=== PATIENT | male | born 1950 | race Caucasian/White ===

== ENCOUNTER 2021-10-19 14:11 | Outpatient (CLI) | payer MEDICARE, SELFPAY ==
--- NOTE | ~2021-10-19 | XR_ITS ---
XR lumbar spine 2-3V DATE: 10/19/2021 14:37 INDICATION: Chronic back pain TECHNIQUE: AP, lateral views COMPARISON: None FINDINGS: There is mild to moderate thoracolumbar levoscoliosis. Status post posterior and interbody spinal fusion at L3-L5. Moderately severe degenerative disc disease at T11-12, mild degenerative disc disease at T12-L1, mode rately severe degenerative disc disease at L1 to and severe degenerative disc disease at L2-3. L5-S1 interspace is relatively preserved. The sacroiliac joints are intact. Battery pack overlies left gluteal area with leads extending cephalad over the upper lumbar and thora cic spine. No abdominal aortic calcification. IMPRESSION: Status post posterior and interbody spinal fusion at L3-L5 Multilevel degenerative disc disease Reviewed, dictated and finalized at location A.
== END 2021-10-19 14:12 | disposition home or self-care (01) ==
PROVIDERS: PCP Internal Medicine Geriatric Medicine; Visit Provider Neurological Surgery
DX: M51.36 Other intervertebral disc degeneration, lumbar region (principal); Z98.1 Arthrodesis status
CPT/HCPCS: 72100

== ENCOUNTER 2021-12-09 10:37 | Outpatient (CLI) | payer MEDICARE, SELFPAY ==
--- NOTE | ~2021-12-09 | XR_ITS ---
XR lumbar spine 2-3V DATE: 12/09/2021 11:01 INDICATION: Low back pain TECHNIQUE: AP, lateral, coned lateral lumbosacral views COMPARISON: 10/19/2021 lumbar spine FINDINGS: Normal alignment of the lumbar spine. There is postoperative change including posterior and interbody spinal fusion at L3-L5. Moderately prominent degenerative disease at L1 to moderately severe degenerative disc disease at L2- 3. Mild degenerative disease at L5-S1. Normal alignment at the sacroiliac joints. There is osteopenia. Left sided generator device overlies the left iliac crest with leads extending over the lower thoraci c spinal canal. IMPRESSION: No significant change since 10/19/2021 Reviewed, dictated and finalized at location B.
--- NOTE | 2021-12-09 11:56 | ECG_ITS ---
Measurements Intervals [place] Rate: 55 P: 28 WI: 224 QRS: 6 QRSD: 95 T: 29 QT: 401 QTc: 386 Interpretive Statements SINUS BRADYCARDIA WITH FIRST DEGREE AV BLOCK NO PREVIOUS ECG AVAILABLE FOR COMPARISON Electronically Signed On 12-09-2021 19:59:55 CDT by Lily Figueroa M.D.
[2021-12-09 12:40] LABS: Basophils Absolute Auto 0.1 K/mm3 (0.0-0.1); Basophils Percent Auto 1.1 % (0.2-1.2); Eosinophils Absolute Auto 0.2 K/mm3 (0-0.3); Eosinophils Percent Auto 2.7 % (0-4.4); Hematocrit 47.6 % (42.0-52.0); Hemoglobin 15.6 g/dL (14.0-18.0); Immature Granulocyte Absolute 0.02 K/mm3 (0.00-0.031); Immature Granulocyte Percent A 0.3 % (0-0.5); Lymphocytes Percent Auto 19.3 % (18.3-44.2); Mean Corpuscular HGB Conc 32.8 g/dl (32-36); Mean Corpuscular Hemoglobin 30.1 pg (26-34); Mean Corpuscular Volume 91.9 fl (80-100); Mean Platelet Volume 8.9 fl (7.4-10.4); Monocytes Absolute Auto 0.6 K/mm3 (0.1-0.6); Monocytes Percent Auto 9.7 % (2.6-8.5); Neutrophils Absolute Auto 4.2 K/mm3 (1.3-6.7); Neutrophils Percent Auto 66.9 % (45.5-73.1); Platelet Count Result 323 k/mm3 (150-375); Red Blood Count 5.18 M/mm3 (4.6-6.20); Red Cell Distribution Width 13.2 % (11.5-14.5); White Blood Count 6.2 K/mm3 (4.5-10.0)
[2021-12-09 12:44] LABS: Prothrombin Time 13.1 Seconds (11.1-14.7)
[2021-12-09 12:45] LABS: Partial Thromboplastin Time 28.4 SECONDS (22.3-36.8)
== END 2021-12-09 10:38 | disposition home or self-care (01) ==
PROVIDERS: PCP Internal Medicine Geriatric Medicine; Visit Provider Neurological Surgery
DX: M54.50 Low back pain, unspecified (principal); Z01.818 Encounter for other preprocedural examination; I44.0 Atrioventricular block, first degree
CPT/HCPCS: 36415; 72100; 85025; 85610; 85730; 86850; 86900; 86901; 93005

== ENCOUNTER 2021-12-31 13:30 | Inpatient (IN) | payer MEDICARE, SELFPAY ==
--- NOTE | 2021-12-28 11:39 | PC.NURSE ---
Report to the Outpatient Waiting Room, entrance under the green pavilion located off [facility], at [address] 0730 on date _12/31/21 . OR Time: . Time changes happen often and if your time is changed the preop area will call you the afternoon before. - You and your visitor will be asked to self-screen and do not enter if you have any COVID symptoms. - Only one visitor and NO children visitors are allowed at this time. - The patient visitor is requested to leave or wait in car when not with patient due to restrictions. - A mask is required within the hospital. Patients may have clear liquids (water, carbonated beverages, clear teas, apple juice) until 3 hours prior to surgery with a maximum of 20 ounces. - No food from midnight until time of surgery - Infants may have breast milk until 4 hours before surgery, formula 6 hours prior to surgery. - Children will be allowed to drink immediately following surgery. If applicable, please bring a bottle or sippy cup to assist with drinking. Juice, water, soda, and popsicles are readily available. For infants on formula, please bring formula the day of surgery. Pacifiers are allowed. Take the following medications with a SIP of water the morning of surgery: __AMLODIPINE,GABAPENTIN,MEMANTINE Medications to discontinue per physician ____PT'S STATES HOLD CELEBREX 2 WKS PRE OP PER DR DUMONT Date to take last dose___12/16/21 Please no make-up, nail azeri, hairspray, perfume, deodorant, or body powder the day of surgery. No jewelry (including any body piercings) or valuables the day of surgery, leave them at home. Please take a shower or bath the night before, or the morning of, surgery with an antibacterial soap. Wear comfortable, loose fitting clothing. Children are encouraged to wear pajamas. - Jewelry must be removed prior to entering the operating room. Rings and piercings that are not removed may be cut off. - The hospital will not accept responsibility for valuables. - Please leave all valuables, including medications, at home the day of surgery. If you are going home after surgery, a licensed emt driver must drive you home. - NO public transportation without another adult. - We recommend that an adult stay with you for 24 hours following discharge. - We also recommend that you do not drive, make important decision, drink alcoholic beverages, or take any drugs that were not prescribed by your health care provider for at least 24 hours after your discharge time. For Pediatric surgeries, we recommend two adults accompany the child home (only one inside the building at this time). Follow any additional instructions given to you from your surgeon. If you or anyone in your household have experienced Covid symptoms in the past week, please notify your surgeon or the nurse liaison at the phone number below for possible testing. Telephone instructions given to PT'S KRISTEN and asked if any additional questions and then verbalized understanding. Patient advised to call surgeon office or pre surgery nurse liaison [phone] if any additional questions.
[2021-12-28 11:46] VITALS: BMI 22.8
--- NOTE | 2021-12-30 15:05 | WPDANESEPPF ---
Anes - Initial Pre Proc Eval Procedure: Operation Date: 12/31/21 09:30 Proposed Procedures p L 2-3 Posterior Lateral Interbody Fusion, Revision of Posterior Instrumentation - Konrad Khanna MD Date/Time: 12/30/21 15:05 Surgeon: Konrad Khanna MD Pre Op Diagnosis: Spondylosis Patient Data Age: 71 Gender: M Height: 1.85 m Weight: 78.5 kg Allergies Allergy/AdvReac Type Severity Reaction Status Date / Time No Known Allergies Allergy Unverified 12/31/21 07:59 Home Medications Medication Instructions Recorded Confirmed Type amlodipine 5 mg tablet 5 mg PO DAILY 10/19/21 12/28/21 History celecoxib 200 mg capsule (Celebrex) 200 mg PO DAILY 10/19/21 12/28/21 History donepezil 10 mg tablet 10 mg PO QHS 10/19/21 12/28/21 History gabapentin 600 mg tablet 600 mg PO TID 10/19/21 12/28/21 History lisinopril 40 mg tablet 40 mg PO DAILY 10/19/21 12/28/21 History memantine 28 mg capsule 28 mg PO DAILY 10/19/21 12/28/21 History sprinkle,extended release 24hr omeprazole 20 mg capsule,delayed 20 mg PO DAILY 10/19/21 12/28/21 History release triamcinolone acetonide 0.025 % 1 applic topical PRN PRN Rash 10/19/21 12/28/21 History topical cream Patient hx anesthesia problems: none Family hx anesthesia problems: none Results Review: All pre-operative results and documents have been reviewed as part of the pre-operative evaluation. [facility] Past Medical History Medical History (Updated 12/30/21 @ 15:06 by Cory Rahman MD) Arthritis Back pain Basal cell carcinoma Ganglion cyst HTN (hypertension) Spinal cord stimulator status Surgical History Surgical History H/O hand surgery H/O knee surgery H/O neck surgery History of appendectomy History of lumbar surgery Family History Family History Other Hypertension Social History Social History Smoking status: Never smoker Alcohol intake: current Drinks per week: 7 Substance use: never Substance use type: does not use Living arrangements: with family Spiritual care concerns: No Anes - Eval Final PreProcedure Day of Procedure 12/30/21 15:05 Patient weight: normal Heart: regular rate and rhythm Lungs: clear to auscultation and normal air movement Airway: Mallampati scale class II Neurological: alert and oriented Last oral intake: >/= 8 hours ASA classification: III Emergent: no Anesthetic plan: proceed Anesthesia type and monitoring: general ETT Results Review: All pre-operative results and documents have been reviewed as part of the pre-operative evaluation. Informed Consent: The patient's anesthetic plan and its attendant risks and benefits were discussed with the patient/family/POA. Questions were solicited and answers provided to the satisfaction of the patient/family/POA.
[2021-12-31] VITALS (14 sets, daily range): BP systolic 94–129; BP diastolic 53–87; PULSE 75–104; RESP 10–18; TEMP 35.6–37.2; O2SAT 91–99
--- NOTE | ~2021-12-31 | XR_ITS ---
XR fluoroscopy no charge 12/31/2021 12:14 Indication: Spinal fusion procedure TECHNIQUE: Fluoroscopy used during spinal fusion procedure performed by [Konrad Khanna MD] on 12/31/2021. Fluoroscopy time is 9 seconds with 5 images captured. ] FINDINGS: Correlate with procedure note. IMPRESSION: Fluoroscopy used during spinal fusion procedure. Please refer to procedural report for de tails. Reviewed, dictated and finalized at location A. IMPRESSION: Fluoroscopy used during spinal fusion procedure. Please refer to pr ocedural report for details.
[2021-12-31] MEDS: LACTATED RINGERS 1,000 ML 30 ML IV CONT ×2 (08:25→12:41)
--- NOTE | 2021-12-31 09:36 | PM.IMHP ---
H&P: HPI History of Present Illness Date/Time: 12/31/21 09:36 Chief Complaint: Back and leg pain Narrative: Mr. Silvestre is a 71-year-old gentleman with junctional stenosis above a lumbar fusion who presents for posterior lumbar interbody fusion after laminectomy at L2-3. He has not changed appreciably since we saw him last. He does not have specific muscle group weakness or dermatomal numbness. He is not having bowel or bladder incontinence. Review of Systems Review of Systems: No numbness or weakness PMFSH Past Medical History Medical History Arthritis Back pain Basal cell carcinoma Ganglion cyst HTN (hypertension) Spinal cord stimulator status Surgical History Surgical History H/O hand surgery H/O knee surgery H/O neck surgery History of appendectomy History of lumbar surgery Family History Family History Other Hypertension Social History Social History Smoking status: Never smoker Alcohol intake: current Drinks per week: 7 Substance use: never Substance use type: does not use Living arrangements: with family Spiritual care concerns: No Meds Home Medications and Allergies Home Medications Medication Instructions Recorded Confirmed Type amlodipine 5 mg tablet 5 mg PO DAILY 10/19/21 12/31/21 History celecoxib 200 mg capsule (Celebrex) 200 mg PO DAILY 10/19/21 12/31/21 History donepezil 10 mg tablet 10 mg PO QHS 10/19/21 12/31/21 History gabapentin 600 mg tablet 600 mg PO TID 10/19/21 12/31/21 History lisinopril 40 mg tablet 40 mg PO DAILY 10/19/21 12/31/21 History memantine 28 mg capsule 28 mg PO DAILY 10/19/21 12/31/21 History sprinkle,extended release 24hr omeprazole 20 mg capsule,delayed 20 mg PO DAILY 10/19/21 12/31/21 History release triamcinolone acetonide 0.025 % 1 applic topical PRN PRN Rash 10/19/21 12/31/21 History topical cream Allergies Allergy/AdvReac Type Severity Reaction Status Date / Time No Known Allergies Allergy Unverified 12/31/21 08:12 Vital Signs Vital Signs - 24 hr 12/31/21 08:28 Temperature 97.8 F Pulse Rate 75 Respiratory Rate 16 Blood Pressure 129/80 Pulse Oximetry 99 Oxygen Delivery Room Air Exam Neuro: Other: The patient is a normally developed, normal appearing male supine in hospital bed in no acute distress. He is awake, alert, oriented x3, with good fund of knowledge, recall events and fluent speech. Strength is 5/5 in all muscle groups of the bilateral lower extremities. Sensation is intact to light touch throughout the lower extremities. Clear to auscultation Regular rate and rhythm Assessment and Plan Assessment and plan (1) Lumbar stenosis with neurogenic claudication: Code(s): M48.062 - Spinal stenosis, lumbar region with neurogenic claudication Status: Acute (2) Lumbar disc herniation: Code(s): M51.26 - Other intervertebral disc displacement, lumbar region Status: Acute Plan Mr. Silvestre is a 71-year-old gentleman with junctional stenosis and disc herniation at L2-3 who presents for posterior lumbar interbody fusion extending his fusion to L2. I described to him again that operation, its risks, potential benefits, the operative and postoperative course in detail answered all his questions personally. He indicates understanding and elects to proceed with that operation.
--- NOTE | 2021-12-31 10:05 | WPDHPUPDATE1 ---
History and Physical Update Update Date/Time: 12/31/21 10:05 History and Physical has been reviewed, including an updated exam of the patient. There are NO changes in the patient's condition. Risks, benefits, and alternatives have been discussed and questions answered. Patient agrees to proceed with procedure.
[2021-12-31] MEDS: ceFAZolin 2 GM/D5W 50 ML 2 GM/50 ML BAG IVPB (10:12)
[2021-12-31] MEDS: LIDO 1%/EPINEPHRINE 1:100,000 50 ML VIAL INFILTRATE (10:49)
--- NOTE | 2021-12-31 12:27 | W.PM.PROC2 ---
Procedure Note - Detailed Date of Procedure 12/31/21 Pre-op Diagnosis Lumbar spondylosis, disc herniation and stenosis, L2-3 Post-op Diagnosis Same Procedure Performed L2-3 laminectomy, bilateral facetectomy, complete diskectomy, interbody arthrodesis utilizing titanium CoreLink interbody devices and L2-3 pedicle screw instrumentation with Sterling with connection to inferior instrumentation with lateral offsets Surgeon Konrad Khanna MD [facility] Anesthesia General Indications Mr. Silvestre is a 71-year-old gentleman with back and leg pain related to the above pathology who presents for decompression and fusion L2-3. Description of Procedure Mr. Silvestre was brought to the operating room in the supine position, was sedated, intubated placed under general anesthesia in routine fashion. He was then turned into the prone position on an open Mahad table. The area of operation on his back was examined, marked for incision, prepped and draped in routine sterile fashion. Incision was marked over the L2-3 for spinous processes in the midline. This area was injected with 0.5% lidocaine with [id number] epinephrine. Intravenous antibiotics given prior to incision. Incision was made with a 10 blade scalpel down to the lumbodorsal fascia. A subperiosteal dissection of the muscle soft tissue away from spinous process and lamina at L2-3 was performed with a subperiosteal elevator and Bovie cautery. The instrumentation at L3-4 was uncovered using Bovie cautery. A verifying x-rays obtained to verify the level of operation. The L2 spinous process was removed with a Jd rongeur. Kerrison punches, curved curette and a Magueksell rongeur were used to remove lamina in the midline until a soft contents of the canal were encountered. Midas-Yimi drill was used to resect the pars bilaterally. The inferior articular process and facet of L2 could then be removed bilaterally. These +spinous process were stripped free of soft tissue and morselized for later use is interbody autograft. Kerrison punches and curved curettes were used to define a plane with the dura and removed bone and ligament flush with the pedicle and through the foramen widely decompressing the exiting nerve roots. With the thecal sac retracted and protected the disc space was entered bilaterally using an 11 blade scalpel. Scrapers of various sizes, curettes of various configurations, a pituitary rongeur and a rasp were used to remove as much cartilaginous endplate and disc material as possible down to bleeding cortical flat surfaces on the opposing bones. The disc space was incised and 10 mm titanium CoreLink interbody devices were chosen filled with local autograft bone. The disc space was likewise filled with local autograft bone medially and anteriorly. The interbody devices were then placed with 2-3 mm countersink within the disc space bilaterally. Pedicle screw instrumentation was performed at L2 by observing and palpating the pedicle while a hole was made in superior to could process above the pedicle using a Midas Yimi drill. The pedicle was then cannulated with a pedicle probe, checked for continuity with the ball probe, tapped with a 5.5 mm tap and a 6.5 x 50 mm screw was placed into each pedicle. Lateral offsets were placed on the rods between L3 and L4. A 7 mm deidre was then placed from the screw head at L2 to the lateral offsets between L3 and L4 and secured in position using the appropriate caps. These were definitively tightened with a torque and anti torque device. A verifying x-rays obtained to verify good position of the instrumentation and interbody devices which was confirmed. The wound was then copiously irrigated with bacitracin irrigation all bleeding was stopped with bipolar and Bovie cautery and Gelfoam thrombin powder. The wound was then closed in layered fashion with 0 Vicryl interrupted sutures in the lumbodorsal fascia and 2-0 Vicryl interrupted sutures in Vanesa's layer. 3-
[2021-12-31] MEDS: fentaNYL CITRATE INJ (*CRX) 100 MCG/2 ML VIAL 25 MCG IV PUSH (14:00)
--- NOTE | 2021-12-31 14:23 | SUR.PHASEI ---
delay pt going to his room due to waiting on an admission and transfer order.
[2021-12-31] MEDS: KCL 20 MEQ/D5/0.45% SOD CHL 1,000 ML 100 ML IV CONT (16:35)
[2021-12-31] MEDS: HYDROcodone/acetaminophen (*CRX) 10-325 MG TABLET 1 TAB PO ×2 (17:45→21:30)
[2021-12-31] MEDS: GABAPENTIN 300 MG CAPSULE 600 MG PO (17:45)
[2021-12-31] MEDS: DONEPEZIL HCL 10 MG TABLET PO (21:30)
[2021-12-31] MEDS: DOCUSATE SODIUM 100 MG CAPSULE PO (21:30)
[2022-01-01 01:32] VITALS: BP 145/89; PULSE 74; RESP 18; TEMP 35.9; O2SAT 99
[2022-01-01] MEDS: HYDROcodone/acetaminophen (*CRX) 10-325 MG TABLET 1 TAB PO ×3 (05:34→18:29)
[2022-01-01 05:39] VITALS: BP 121/84; PULSE 87; RESP 18; TEMP 36; O2SAT 95
[2022-01-01] MEDS: DOCUSATE SODIUM 100 MG CAPSULE PO ×2 (08:42→20:19)
[2022-01-01] MEDS: GABAPENTIN 300 MG CAPSULE 600 MG PO ×3 (08:42→16:57)
[2022-01-01] MEDS: CYCLOBENZAPRINE HCL 10 MG TABLET PO (08:42)
[2022-01-01] MEDS: amLODIPine BESYLATE 5 MG TABLET PO (08:42)
[2022-01-01] MEDS: SENNA/DOCUSATE SODIUM TABLET 1 TAB PO (08:43)
[2022-01-01] MEDS: PANTOPRAZOLE 40 MG TABLET PO (08:43)
[2022-01-01] MEDS: MEMANTINE HCL XR 28 MG CAP PO (08:43)
[2022-01-01] MEDS: lisinopriL 20 MG TABLET 40 MG PO ×2 (10:34→20:20)
[2022-01-01] MEDS: HYDROmorphone HCL INJ (*CRX) 1 MG/ML SYR 0.5 MG IV PUSH (10:37)
--- NOTE | 2022-01-01 11:35 | WPDANESPN ---
Anes - Prog Note Post-Op Date/Time: 01/01/22 11:35 Cardiovascular status: normal Respiratory status: normal Airway patency: baseline Mental status: baseline Post-Op hydration status: normal Vital Signs: Last Vital Signs Temp 36.0 C L 01/01/22 05:39 Pulse 87 01/01/22 05:39 Resp 18 01/01/22 05:39 BP 121/84 01/01/22 05:39 Pulse Ox 95 01/01/22 05:39 O2 Del Method Room Air 01/01/22 08:00 O2 Flow Rate 6 12/31/21 12:55 Pain Score (VAS): 10 I/O: Intake & Output 12/31/21 01/01/22 01/01/22 23:59 07:59 15:59 Intake Total 690 2050 170 Output Total 140 1790 Balance 550 260 170 Post-procedural complaints: none Patient Feedback: Patient satisfied with anesthetic care.
--- NOTE | 2022-01-01 12:22 | WPDNEUROSGPN ---
Progress Note: A&P Assessment and Plan (1) Lumbar stenosis with neurogenic claudication: Code(s): M48.062 - Spinal stenosis, lumbar region with neurogenic claudication Status: Acute Assessment and Plan: Mr. iSlvestre is doing well overall after lumbar decompression and fusion at L2-3. His therapist feel that he would benefit from 1 additional day in the hospital prior to consideration of discharge to home. Particularly as his Hemovac drain output with high overnight I think this is reasonable. We will leave the drain in place expecting it to be able to be removed tomorrow. He will continue to mobilize with therapy in anticipation of hopeful discharge on postoperative day 2 Subjective Date/time seen: 01/01/22 12:22 Patient notes improvement in lower extremity symptoms Still needing some cues from PT for safety Drain output high overnight Exam Narrative: Awake, alert, oriented x3 Speech CF GARO EOMI Face= TML MAEW with good strength Dressing CDI Objective Data Vital Signs Vital Signs: Vital Signs - 24 hr 12/31/21 12:40 12/31/21 12:55 12/31/21 13:10 Temperature 99 F Pulse Rate 104 H 101 H 95 Respiratory Rate 10 L 13 11 L Blood Pressure 109/80 108/72 99/65 L Pulse Oximetry 99 99 94 Oxygen Delivery Simple Face Mask Simple Face Mask Room Air Oxygen Flow Rate 6 6 12/31/21 13:25 12/31/21 13:40 12/31/21 13:55 Temperature Pulse Rate 89 87 79 Respiratory Rate 13 13 14 Blood Pressure 95/72 L 94/74 L 97/70 L Pulse Oximetry 93 97 96 Oxygen Delivery Room Air Room Air Room Air Oxygen Flow Rate 12/31/21 14:10 12/31/21 14:26 12/31/21 16:02 Temperature Pulse Rate 79 91 Respiratory Rate 14 18 Blood Pressure 97/77 L 99/79 L Pulse Oximetry 96 95 Oxygen Delivery Room Air Room Air Room Air Oxygen Flow Rate 12/31/21 14:54 12/31/21 15:09 12/31/21 15:39 Temperature 97.5 F L 96.2 F L 96.4 F L Pulse Rate 86 86 83 Respiratory Rate 16 16 18 Blood Pressure 108/69 102/73 107/75 Pulse Oximetry 91 94 93 Oxygen Delivery Oxygen Flow Rate 12/31/21 16:39 12/31/21 21:08 12/31/21 22:55 Temperature 96.0 F L 97.3 F L Pulse Rate 86 83 Respiratory Rate 16 18 Blood Pressure 104/53 L 119/87 Pulse Oximetry 91 93 Oxygen Delivery Room Air Oxygen Flow Rate 01/01/22 01:32 01/01/22 05:39 01/01/22 08:00 Temperature 96.7 F L 96.8 F L Pulse Rate 74 87 Respiratory Rate 18 18 Blood Pressure 145/89 H 121/84 Pulse Oximetry 99 95 Oxygen Delivery Room Air Oxygen Flow Rate Intake/Output Intake/Output: Intake & Output 12/29/21 12/30/21 12/31/21 01/01/22 23:59 23:59 23:59 23:59 Intake Total 2740 2220 Output Total 225 1790 Balance 2515 430 Meds/Results Medications: Active Medications Generic Name Dose Route Start Last Admin Trade Name Freq PRN Reason Stop Dose Admin Hydrocodone Bitart/Acetaminophen 1 tab 12/31/21 14:39 Hydrocodone/Acetaminophen (*Crx) 5-325 Mg Tablet PO Q4H PRN Mild Pain (1-3) Hydrocodone Bitart/Acetaminophen 1 tab 12/31/21 14:39 01/01/22 08:42 Hydrocodone/Acetaminophen (*Crx) 10-325 Mg Tablet PO 1 tab Q4H PRN Administration Moderate Pain (4-6) Al Hydrox/Mg Hydrox/Simethicone 20 ml 12/31/21 14:39 Mag Hydrox/Al Hydrox/Simeth 30 Ml Udc PO Q4H PRN Indigestion/Heartburn Amlodipine Besylate 5 mg 01/01/22 09:00 01/01/22 08:42 Amlodipine Besylate 5 Mg Tablet PO 5 mg DAILY ALICIA Administration Bisacodyl 10 mg 12/31/21 14:39 Bisacodyl 10 Mg Suppository RECTAL DAILY PRN Constipation Cyclobenzaprine HCl 10 mg 12/31/21 14:39 01/01/22 08:42 Cyclobenzaprine Hcl 10 Mg Tablet PO 10 mg TID PRN Administration Muscle Spasms Docusate Sodium 100 mg 12/31/21 21:00 01/01/22 08:42 Docusate Sodium 100 Mg Capsule PO 100 mg Q12HR ALICIA Administration Donepezil HCl 10 mg 12/31/21 21:00 12/31/21 21:30 Donepezil Hcl 10 Mg Tablet PO 10 mg QHS
[2022-01-01 13:16] VITALS: BP 117/73; PULSE 81; RESP 18; TEMP 36.9; O2SAT 100
--- NOTE | 2022-01-01 17:42 | PC.NURSE ---
Pt was bladder scanned and found to be retaining approximately 750mL. I attempted to straight cath pt with a 14 catheter but it coiled due to pt's prostate. Various attempts were made using different positions but to no avail. A 16 coude catheter was obtained and another attempt to straight cath pt was performed but again to no avail. Pt was placed in different positions and multiple attempts were made with each position including rotating the coude but again it would not go around the prostate and coiled. This is the third time pt is needed to be straight cathed. A 14 coude catheter was obtained and another attempt to straight cath pt was made; this time the coude tip was inserted group tester and turned to the right (pt's left side) and was able to hook around the prostate. The entire length of the catheter had to be inserted up to the point of the pigtail in order for the bladder to be drained. Approximately 850mL were drained from pt's bladder. Pt was bladder scanned after being cathed with a residual of approximately 14mL.
[2022-01-01 20:10] VITALS: PULSE 81; RESP 18; O2SAT 100
[2022-01-01] MEDS: DONEPEZIL HCL 10 MG TABLET PO (20:21)
[2022-01-01 22:45] VITALS: BP 114/96; PULSE 86; RESP 18; TEMP 36.8; O2SAT 97
[2022-01-02 00:30] VITALS: BP 106/74; PULSE 82; RESP 18; TEMP 36.5; O2SAT 94
[2022-01-02 04:51] VITALS: BP 113/65; PULSE 83; RESP 18; TEMP 36.9; O2SAT 93
[2022-01-02] MEDS: GABAPENTIN 300 MG CAPSULE 600 MG PO (08:45)
[2022-01-02] MEDS: MEMANTINE HCL XR 28 MG CAP PO (08:45)
[2022-01-02] MEDS: amLODIPine BESYLATE 5 MG TABLET PO (08:45)
[2022-01-02] MEDS: DOCUSATE SODIUM 100 MG CAPSULE PO (08:45)
[2022-01-02] MEDS: lisinopriL 20 MG TABLET 40 MG PO (08:45)
[2022-01-02] MEDS: HYDROcodone/acetaminophen (*CRX) 10-325 MG TABLET 1 TAB PO (08:45)
[2022-01-02] MEDS: CYCLOBENZAPRINE HCL 10 MG TABLET PO (08:46)
[2022-01-02] MEDS: PANTOPRAZOLE 40 MG TABLET PO (08:46)
[2022-01-02 14:00] VITALS: BP 104/69; PULSE 67; RESP 20; TEMP 36.6; O2SAT 97
--- NOTE | 2022-01-02 15:26 | WPDURCON ---
Assessment and Plan Assessment and plan (1) Urinary retention with incomplete bladder emptying: Code(s): R33.9 - Retention of urine, unspecified Status: Acute Assessment and Plan: I place 18 gambian coude at bedside---resistance at prostate DC home with ayers' Trial of voiding 3-4 days started and gave script for tamsulosin Urology Consult Note HPI Date Seen: 01/02/22 Requesting Physician: Konrad Khanna MD Primary Care Provider: Antony Singh, Consult Narrative Narrative: De Silvestre is a 71 year old male wiht retention following Lumbar spine operations. Straight cath yesterday and unable to place ayers or straight cath today. Asked to place. No past history of prostate issues. Voiding symptoms mild preop--nocturia 2-3 and stream reasonable. [facility] Past Medical History Medical History Arthritis Back pain Basal cell carcinoma Ganglion cyst HTN (hypertension) Spinal cord stimulator status Surgical History Surgical History H/O hand surgery H/O knee surgery H/O neck surgery History of appendectomy History of lumbar surgery Family History Family History Other Hypertension Social History Social History Smoking status: Never smoker Alcohol intake: current Drinks per week: 7 Substance use: never Substance use type: does not use Living arrangements: with family Spiritual care concerns: No Meds Home Medications and Allergies Home Medications Medication Instructions Recorded Confirmed Type amlodipine 5 mg tablet 5 mg PO DAILY 10/19/21 12/31/21 History donepezil 10 mg tablet 10 mg PO QHS 10/19/21 12/31/21 History gabapentin 600 mg tablet 600 mg PO TID 10/19/21 12/31/21 History lisinopril 40 mg tablet 40 mg PO BID 10/19/21 12/31/21 History memantine 28 mg capsule 28 mg PO DAILY 10/19/21 12/31/21 History sprinkle,extended release 24hr omeprazole 20 mg capsule,delayed 20 mg PO DAILY 10/19/21 12/31/21 History release triamcinolone acetonide 0.025 % 1 applic topical PRN PRN Rash 10/19/21 12/31/21 History topical cream cyclobenzaprine 10 mg tablet 10 mg PO TID PRN Muscle Spasms #63 01/02/22 Rx tabs hydrocodone 5 mg-acetaminophen 325 1 - 2 tablet PO Q6H PRN pain #50 01/02/22 Rx mg tablet tabs sennosides 8.6 mg-docusate sodium 1 tab PO HS PRN Constipation #45 01/02/22 Rx 50 mg tablet (Senokot-S) tabs tamsulosin 0.4 mg capsule 0.4 mg PO QAM #1 cap 01/02/22 Rx Allergies Allergy/AdvReac Type Severity Reaction Status Date / Time No Known Allergies Allergy Unverified 12/31/21 08:12 Vital Signs Vital Signs - 24 hr 01/01/22 20:10 01/01/22 22:45 01/02/22 00:30 Temperature 36.8 C 36.5 C Pulse Rate 81 86 82 Respiratory Rate 18 18 18 Blood Pressure 114/96 H 106/74 Pulse Oximetry 100 97 94 Oxygen Delivery Room Air 01/02/22 04:51 01/02/22 08:00 01/02/22 14:00 Temperature 36.9 C 36.6 C Pulse Rate 83 67 Respiratory Rate 18 20 Blood Pressure 113/65 104/69 Pulse Oximetry 93 97 Oxygen Delivery Room Air Exam GI: GI Palp: No abdominal tenderness and No Guarding due to palpation present (GI) : General: Yes bladder normal to palpation Penis: Yes normal penis and Yes circumcised
--- NOTE | 2022-01-23 08:51 | P.DS_ITS ---
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 Silvestre presented for advancement of his fusion at L2 for junctional stenosis. This is a L2-3 posterior lumbar interbody fusion. Hospital Course: Mr. Silvestre was brought to the operating room on 12/31/2021 with the aforementioned operation was performed without complication. He would to the floor postoperatively. On postoperative day 1 his drain was removed. He had trouble with urination and Neurology was consulted. Ayers catheter was placed. At the time of his discharge he was eating, ambulating in his pain was under control with by mouth pain medicine. His wound remained clean, dry and intact. He was afebrile stable vital signs. He was therefore allowed to be discharged home. Time Spent with Patient Time attestation: Total time spent providing and/or coordinating discharge services: Discharge Plan Discharge Attending physician on discharge: Konrad Khanna Consulting providers: Abner Hinojosa ; Yamilka King ; Zoran Mcmillan ; Rashad Pulido Discharging Clinician: Rashad Pulido Patient Disposition: Home Health Service Activity: august shower Diet: regular Discharge Instructions: A Ayers catheter has been placed due to urinary retention. Leave the catheter in place until after your appointment with the urologist. Please call and schedule an appointment with the urologist Tuesday, January 04, 2002. Per Care Coordination. Patient to have [facility] [phone] for RN/PT/OT eval and treat. RN please fax discharge to [phone]. They will contact patient to schedule first visit. Patient Instructions: Antibiotic Form Stand Alone Forms: General Discharge Information Follow-up/Referrals: Konrad Khanna MD [Physician] - (F/u in clinic with Dr. Khanna We will contact Urology for f/u for ayers catheter. Patient not able to void on his own, so will be discharged with ayers ) Zoran Mcmillan MD [Physician] - Discharge Medications: New cyclobenzaprine 10 mg Tablet 10 mg PO TID PRN (Reason: Muscle Spasms) Qty: 63 0RF sennosides-docusate sodium [Senokot-S] 8.6-50 mg Tablet 1 tab PO HS PRN (Reason: Constipation) Qty: 45 1RF hydrocodone-acetaminophen 5-325 mg tablet 1 - 2 tablet PO Q6H PRN (Reason: pain) Qty: 50 0RF tamsulosin 0.4 mg Capsule 0.4 mg PO QAM Qty: 1 0RF Continued lisinopril 40 mg tablet 40 mg PO BID Label Comments: BID omeprazole 20 mg capsule,delayed release(DR/EC) 20 mg PO DAILY amlodipine 5 mg tablet 5 mg PO DAILY gabapentin 600 mg tablet 600 mg PO TID donepezil 10 mg tablet 10 mg PO QHS memantine 28 mg capsule,sprinkle,ER 24hr 28 mg PO DAILY triamcinolone acetonide 0.025 % cream 1 applic topical PRN PRN (Reason: Rash) Label Comments: said few weeks Rx Instructions: generalized rash after yard work or mowing grass. Discontinued celecoxib [Celebrex] 200 mg capsule 200 mg PO DAILY Label Comments: BID No Action oxycodone-acetaminophen [Percocet] 5-325 mg tablet 1 tablet PO Q4H PRN (Reason: pain) Qty: 30 0RF Date of admission: 12/31/21 13:30 Primary Care Provider: Francisco,Antony Bradley Admitting Provider: Konrad Khanna Attending physician on admission: Konrad Khanna Condition: Improved
== END 2022-01-02 15:50 | disposition home health service (06) | DRG 460 ==
LOC: ANH3MEDSUR 13:48
PROVIDERS: Admitting Provider Neurological Surgery; PCP Internal Medicine Geriatric Medicine; Visit Provider Neurological Surgery
PROC: 0SG00AJ Fusion of Lumbar Vertebral Joint with Interbody Fusion Device, Posterior Approach, Anterior Column, Open Approach (ICD-10-PCS; CPT 22612; principal; 2021-12-31 09:30)
DX: M48.062 Spinal stenosis, lumbar region with neurogenic claudication (principal); M47.896 Other spondylosis, lumbar region; M51.26 Other intervertebral disc displacement, lumbar region; I10 Essential (primary) hypertension; R33.9 Retention of urine, unspecified; Z79.899 Other long term (current) drug therapy
CPT/HCPCS: 36415; 86850; 86900; 86901; 97116; 97161; 97165; 97530; 97535; 99199; A9270; J0690; J1100; J1170; J2370; J2405; J2704; J2710; J3010; J3370; J3480; J7120

== ENCOUNTER 2022-02-15 08:07 | Outpatient (CLI) | payer MEDICARE, SELFPAY ==
--- NOTE | ~2022-02-15 | XR_ITS ---
EXAMINATION: XR lumbar spine 2-3V DATE: 02/15/2022 08:30 INDICATION: Low back pain TECHNIQUE: Anteroposterior and lateral views of the lumbar spine, and cone-down lateral view of the l umbosacral junction were obtained. COMPARISON: 12/09/2021 FINDINGS: There are changes of interval posterior fusion, interbody device placement, and laminectomy at L2-3. Changes of posterior fusion, laminectomy, and interbody device placement are again seen fro m L3 through L5. The vertebral body heights are maintained. There are 2 mm of retrolisthesis of L5 on S1. There is no fracture. Small degenerative osteophytes project from the anterior endplates of mult iple vertebral bodies. A neurostimulator device is implanted in the posterior subcutaneous tissues in the left pelvis. Its leads enter the central spinal canal and courses beyond the superior margin of the radiograph. IMPRESSION: 1. Interval surgical change at L2-3 without acute findings. Reviewed, dictated and finalized at location B. [employer]INATE MEASURING MACHINE OPERATOR
== END 2022-02-15 08:08 | disposition home or self-care (01) ==
PROVIDERS: PCP Internal Medicine Geriatric Medicine; Visit Provider Neurological Surgery
DX: M48.062 Spinal stenosis, lumbar region with neurogenic claudication (principal); M51.26 Other intervertebral disc displacement, lumbar region; Z98.1 Arthrodesis status
CPT/HCPCS: 72100

== ENCOUNTER 2022-07-19 10:11 | Outpatient (CLI) | payer MEDICARE, SELFPAY ==
--- NOTE | ~2022-07-19 | XR_ITS ---
Lumbosacral Spine: AP and lateral views Clinical History: Pain COMPARISON: 02/15/2022 Findings: Osseous alignment is unchanged from prior exam. Posterior fixation hardware from L2 through L5, as well as interbody fusion devices are unchanged. Stable neurostimulator device. The sacroiliac joints are normally outlined. Impression: Stable postoperative change from prior exam. Osseous alignment is unchanged. Reviewed, dictated and finalized at [facility]. Impression: Stable postoperative change from prior exam. Osseous alignment is unchanged.
== END 2022-07-19 10:12 | disposition home or self-care (01) ==
PROVIDERS: PCP Internal Medicine Geriatric Medicine; Visit Provider Neurological Surgery
DX: M54.9 Dorsalgia, unspecified (principal)
CPT/HCPCS: 72100

== ENCOUNTER 2022-07-29 10:07 | Outpatient (CLI) | payer MEDICARE, SELFPAY ==
--- NOTE | ~2022-07-29 | CT_ITS ---
Noncontrast CT scan of the lumbar spine CLINICAL HISTORY: Back pain TECHNIQUE: Axial noncontrast imaging of the lumbar spine was performed. Sagittal and coronal reformat juvenal images were constructed. Dose reduction technique was used on this scan by utilizing automated ex posure control and iterative reconstruction technique. The dose-length product (DLP) was 996.24 mGy-c m. Findings: No acute fracture or subluxations identified. There is posterior fusion hardware extending from L2 through L5, with bilateral rods and transpedicular screws in place. Interbody disc fusion dev ices are present at the L2-L3, L3-L4, and L4-L5 disc spaces. There are laminectomy defects at L2, L3, and L4. There is mild degenerative disc narrowing at L1-L2. At L1-L2, there is minimal disc bulge and mild facet arthropathy. No spinal canal stenosis. Probable mild to moderate bilateral neural foraminal narrowing. At L2-L3, there is streak artifact from orthopedic hardware. No definite canal stenosis or neural for aminal narrowing. At L3-L4, there is streak artifact from orthopedic hardware. No definite canal stenosis. Probable mil d bilateral neural foraminal narrowing. At L4-L5, there is streak artifact from orthopedic hardware. No definite canal stenosis. Probable mod erate bilateral neural foraminal narrowing. At L5-S1, there is no definite disc bulge or herniation. No definite spinal canal stenosis. There is moderate left neural foraminal narrowing and mild right neural foraminal narrowing. Paravertebral soft tissues are unremarkable, aside from expected postoperative change. IMPRESSION: Postoperative fusion changes from L2 through L5, as detailed above. Mild degenerative spondylosis, as above. Reviewed, dictated and finalized at location M.
== END 2022-07-29 10:08 | disposition home or self-care (01) ==
PROVIDERS: PCP Internal Medicine Geriatric Medicine; Visit Provider Neurological Surgery
DX: M51.26 Other intervertebral disc displacement, lumbar region (principal); Z98.1 Arthrodesis status; M47.896 Other spondylosis, lumbar region
CPT/HCPCS: 72131

== ENCOUNTER 2022-12-29 10:29 | Outpatient (CLI) | payer MEDICARE, SELFPAY ==
--- NOTE | ~2022-12-29 | XR_ITS ---
Lumbosacral Spine: AP and lateral views Clinical History: Arthrodesis COMPARISON: 07/19/2022 Findings: Posterior lumbosacral spinal fixation hardware is present, extending from L2 through S2. Th ere are interbody fusion devices at the L2-L3, L3-L4, L4-L5, and L5-S1 disc spaces. There is underlyi ng anterolisthesis of L4 over L5 measuring approximately 6 mm. Minimal anterior wedging deformity of L1 is unchanged. The sacroiliac joints are normally outlined. Impression: Posterior and interbody fusion hardware extending from L2 through S2, as detailed above. Chronic mild anterior wedge deformity of L1. 6 mm anterolisthesis of L4 over L5. Reviewed, dictated and finalized at location M. Impression: Posterior and interbody fusion hardware extending from L2 through S2, as detail ed above. Chronic mild anterior wedge deformity of L1. 6 mm anterolisthesis of L4 over L5.
== END 2022-12-29 10:30 | disposition home or self-care (01) ==
PROVIDERS: PCP Internal Medicine Geriatric Medicine; Visit Provider Neurological Surgery
DX: Z98.1 Arthrodesis status (principal)
CPT/HCPCS: 72100

== ENCOUNTER 2023-07-08 10:10 | Outpatient (CLI) | payer MEDICARE, SELFPAY ==
--- NOTE | ~2023-07-08 | XR_ITS ---
EXAM: XR lumbar spine min 4V DATE: 07/08/2023 10:35 HISTORY: M54.9 - Dorsalgia, unspecified . COMPARISON: 12/29/2022. FINDINGS: Uncomplicated posterior spinal fusion hardware spanning L2-S2 and the bilateral sacral join ts. Interbody devices remain in good position. Spinal alignment is unchanged. Left-sided stimulator p ack, leads terminate out of the [id number]. 5 nonrib-bearing lumbar-type vertebral bodies. Stable mild anterior wedge deformity at T12 and L1. Multilevel degenerative disc disease and facet arthropat hy. Atherosclerotic aortic calcification, without evidence of aneurysm. IMPRESSION: No acute finding in the lumbar spine. No radiographic evidence of hardware related compli cation. Reviewed, dictated and finalized at location K. IMPRESSION: No acute finding in the lumbar spine. No radiographic evidence of h ardware related complication.
== END 2023-07-08 10:11 | disposition home or self-care (01) ==
LOC: ANHIMG 10:11
PROVIDERS: PCP Internal Medicine Geriatric Medicine; Visit Provider Physician Assistant
DX: M54.9 Dorsalgia, unspecified (principal)
CPT/HCPCS: 72110

== ENCOUNTER 2023-07-21 09:40 | Outpatient (CLI) | payer MEDICARE, SELFPAY ==
--- NOTE | ~2023-07-21 | CT_ITS ---
EXAMINATION: CT abd pelvis lumbar wo con DATE: 07/21/2023 10:07 INDICATION: Low back pain. Spinal stenosis with neurogenic claudication. Diarrhea. TECHNIQUE: Computed tomography (CT) of the abdomen and pelvis and lumbar spine was performed without intravenous contrast. Automated exposure control and iterative reconstruction technique were employed . The dose-length product was 602.22 mGy-cm. COMPARISON: Lumbar spine CT 07/29/22 FINDINGS: CT ABDOMEN AND PELVIS: The visualized portions of the lung bases demonstrate mild atelectasis. No ple ural effusion. The heart size is normal. No pericardial effusion. The gallbladder, spleen, pancreas, adrenal glands, and kidneys are normal. There is calcified atherosclerosis of the aorta and many of t he other arteries. There are bilateral inguinal hernias containing fat. There is diverticulosis of th e colon without evidence of diverticulitis. There are no dilated loops of bowel. The appendix is not visualized. There are no pathologically enlarged lymph nodes. There is no free intraperitoneal fluid. CT LUMBAR SPINE: Bone alignment is normal. There is mild chronic anterior wedging of T12 and L1 verte bral bodies. There are changes of anterior and posterior fusion procedures from L2 to the sacrum and iliac bones with interbody devices and screws. There is moderately decreased disc height at L1-L2. Th ere are laminectomies from L2 to L5. Epidural electrodes are noted. The following disc levels are spe cifically discussed: L1-L2: The disc is bulging. There is mild lateral facet joint osteoarthritis. There is mild bilateral neural foraminal stenosis. There is mild central canal stenosis. L2-L3: There is no facet joint hypertrophy. There is no neural foraminal stenosis. There is no centra l canal stenosis. L3-L4: There is no facet joint hypertrophy. There is no neural foraminal stenosis. There is no centra l canal stenosis. L4-L5: There is no facet joint hypertrophy. There is no neural foraminal stenosis. There is no centra l canal stenosis. L5-S1: There is no facet joint hypertrophy. There is mild right neural foraminal stenosis. There is n o central canal stenosis. IMPRESSION: 1. Bilateral inguinal hernias containing fat. 2. Anterior and posterior fusion procedures from L2 to the sacrum and iliac bones. 3. Moderate lumbar spondylosis. Reviewed, dictated and finalized at location A. IMPRESSION: 1. Bilateral inguinal hernias containing fat. 2. Anterior and posterior fusion procedures from L2 to the sacrum and iliac bon es. 3. Moderate lumbar spondylosis.
== END 2023-07-21 09:41 ==
PROVIDERS: PCP Neurological Surgery; Visit Provider Neurological Surgery
DX: M47.896 Other spondylosis, lumbar region (principal); Z98.1 Arthrodesis status; K40.20 Bilateral inguinal hernia, without obstruction or gangrene, not specified as recurrent
CPT/HCPCS: 72131; 74176